=== PATIENT | female | born 1970 | race Caucasian/White ===

== ENCOUNTER 2021-11-18 12:55 | Outpatient (REF) | payer OTHER, SELFPAY ==
--- NOTE | ~2021-11-18 | MM_ITS ---
EXAMINATION: MM DIAGNOSTIC DIGITAL BREAST TOMOSYNTHESIS, BILATERAL CLINICAL INFORMATION: Recent history bilateral nipple crusting and scaling, subsequently resolved. The lifetime risk of breast cancer based on the Tyrer-Cuzick Model is 14%. COMPARISON: Mammography: 05/12/2018, 04/05/2017, 03/29/2016 TECHNIQUE: Digital breast tomosynthesis is performed in both the craniocaudal and mediolateral oblique views along with computer-aided detection (CAD). Synthesized 2D images are generated from the tomosynthesis. FINDINGS: The breasts are almost entirely fatty (ACR BI-RADS breast composition Category a). Background stromal and fibroglandular densities are stable. There is no developing density or interval mass or architectural abnormality or duct ectasia. No abnormal calcifications. The axilla are unremarkable. There is no skin thickening or coarsening of the Rudy's ligaments. Results are discussed with the patient at time of visit. MM/MM tomosynthesis diagnostic BI IMPRESSION: -No mammographic evidence of malignancy. -No significant changes from prior studies. ASSESSMENT: BI-RADS 1: Negative RECOMMENDATION: 1. Patient should be managed based on the clinical impression.ca 2. Otherwise, routine annual screening mammography. This patient's information was entered into a reminder system with a target due date for their next mammogram.
== END 2021-11-18 12:56 | disposition home or self-care (01) ==
LOC: HO.MAMMO 12:55
PROVIDERS: PCP Nurse Practitioner Family; Visit Provider Obstetrics & Gynecology
DX: N64.89 Other specified disorders of breast (principal)
CPT/HCPCS: 77062; 77066

== ENCOUNTER 2021-12-22 14:36 | Outpatient (REF) | payer OTHER, SELFPAY ==
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
== END 2021-12-22 14:37 | disposition home or self-care (01) ==
LOC: HO.SH 14:36
PROVIDERS: Visit Provider Nurse Practitioner Family
DX: Z01.118 Encounter for examination of ears and hearing with other abnormal findings (principal); H69.92 Unspecified Eustachian tube disorder, left ear
CPT/HCPCS: 92557; 92567; 92588

== ENCOUNTER 2022-11-18 14:30 | Outpatient (REF) | payer OTHER, SELFPAY ==
--- NOTE | ~2022-11-18 | MM_ITS ---
EXAMINATION: MM SCREENING DIGITAL BREAST TOMOSYNTHESIS, BILATERAL CLINICAL INFORMATION: Screening. Asymptomatic. The lifetime risk of breast cancer based on the Tyrer-Cuzick Model is 15%. COMPARISON: Mammography: 11/18/2021, 05/12/2018, 04/05/2017 TECHNIQUE: Digital breast tomosynthesis is performed in both the craniocaudal and mediolateral oblique views along with computer-aided detection (CAD). Synthesized 2D images are generated from the tomosynthesis. FINDINGS: The breasts are almost entirely fatty (ACR BI-RADS breast composition Category a). There are no significant masses, abnormal calcifications, or other abnormalities. Background stromal markings are normal, similar to prior studies. No developing density or architectural abnormality. The axilla and skin contours are unremarkable. MM/MM tomosynthesis screening BI IMPRESSION: No mammographic evidence of malignancy. ASSESSMENT: BI-RADS 1: Negative RECOMMENDATION: Routine annual mammography screening. This patient's information was entered into a reminder system with a target due date for their next mammogram.
== END 2022-11-18 14:31 | disposition home or self-care (01) ==
LOC: HO.MAMMO 14:30
PROVIDERS: PCP Nurse Practitioner Family; Visit Provider Nurse Practitioner Family
DX: Z12.31 Encounter for screening mammogram for malignant neoplasm of breast (principal)
CPT/HCPCS: 77063; 77067

== ENCOUNTER 2023-11-23 15:37 | Outpatient (REF) | payer OTHER, SELFPAY ==
--- NOTE | ~2023-11-23 | MM_ITS ---
EXAMINATION: MM SCREENING DIGITAL BREAST TOMOSYNTHESIS, BILATERAL CLINICAL INFORMATION: Screening. Asymptomatic. COMPARISON: Mammography: This study is compared with prior exams dating back to 2017. TECHNIQUE: Digital breast tomosynthesis is performed in both the craniocaudal and mediolateral oblique views along with computer-aided detection (CAD). Synthesized 2D images are generated from the tomosynthesis. FINDINGS: The breasts are almost entirely fatty (ACR BI-RADS breast composition Category a). There are no significant masses, abnormal calcifications, or other abnormalities. MM/MM tomosynthesis screening BI IMPRESSION: No mammographic evidence of malignancy. ASSESSMENT: BI-RADS BI-RADS 1 - Negative RECOMMENDATION: Routine annual mammography screening. 1 year F/U This examination should not preclude the clinical evaluation of a suspicious palpable abnormality. This patient's information was entered into a reminder system with a target due date for their next mammogram.
== END 2023-11-23 15:38 | disposition home or self-care (01) ==
LOC: HO.MAMMO 15:37
PROVIDERS: PCP Nurse Practitioner Family; Visit Provider Nurse Practitioner Family
DX: Z12.31 Encounter for screening mammogram for malignant neoplasm of breast (principal)
CPT/HCPCS: 77063; 77067

== ENCOUNTER → 2023-11-23 16:00 | Outpatient (BNV) | payer OTHER, SELFPAY | PROVIDERS: PCP Nurse Practitioner Family; Visit Provider Radiology Diagnostic Radiology | DX: Z12.31 Encounter for screening mammogram for malignant neoplasm of breast (principal) | CPT/HCPCS: 77063; 77067 ==

== ENCOUNTER → 2024-12-14 09:45 | Outpatient (BNV) | payer OTHER, SELFPAY | PROVIDERS: PCP Nurse Practitioner Family; Visit Provider Internal Medicine | DX: Z12.31 Encounter for screening mammogram for malignant neoplasm of breast (principal) | CPT/HCPCS: 77063; 77067 ==

== ENCOUNTER 2024-12-14 09:51 | Outpatient (REF) | payer OTHER, SELFPAY | END 2024-12-14 09:52 | disposition home or self-care (01) | LOC: HO.MAMMO 09:51 | PROVIDERS: PCP Nurse Practitioner Family; Visit Provider Nurse Practitioner Family | DX: Z12.31 Encounter for screening mammogram for malignant neoplasm of breast (principal) | CPT/HCPCS: 77063; 77067 ==